=== PATIENT | female | born 1975 | race Caucasian/White ===

== ENCOUNTER 2021-11-27 09:14 | Outpatient (CLI) | payer SELFPAY ==
[2021-11-27 12:57] LABS: Albumin* 4.6 g/dL (3.3-5.0); Chloride* 103 mmol/L (96-114); Potassium* 4.3 mmol/L (3.6-5.1); Sodium* 136 mmol/L (135-149)
[2021-11-27 12:59] LABS: Carbon Dioxide* 21 mmol/L (20-32); Cholesterol* 206 mg/dL (90-199); Creatinine* 0.7 mg/dL (0.5-1.5); Estimated Glomerular Filt Rate 109 ml/min
[2021-11-27 13:00] LABS: Alanine Aminotransferase* 28 U/L (4-35); Alkaline Phosphatase* 59 U/L (40-150); Aspartate Amino Transferase* 18 U/L (12-35); Bilirubin Total* 0.4 mg/dL (0.1-1.5); Blood Urea Nitrogen* 16 mg/dL (5-24); Calcium* 9.3 mg/dL (8.4-10.6); Glucose* 184 mg/dL (60-115); Total Protein* 6.8 g/dL (6.0-8.3); Triglycerides* 264 mg/dL (40-149)
[2021-11-27 13:01] LABS: HDL Cholesterol* 35 mg/dL (>=50); LDL Cholesterol Calculated 118 mg/dL (<100)
== END 2021-11-27 09:15 | disposition home or self-care (01) ==
PROVIDERS: PCP Physician Assistant Medical; Visit Provider Physician Assistant Medical
DX: E11.9 Type 2 diabetes mellitus without complications (principal); E78.2 Mixed hyperlipidemia
CPT/HCPCS: 80053; 80061; 84443

== ENCOUNTER 2022-09-21 08:06 | Observation (INO) | payer MEDICAID, SELFPAY ==
[2022-09-21] VITALS (9 sets, daily range): BP systolic 109–141; BP diastolic 66–86; PULSE 69–81; RESP 16–18; TEMP 36.3–37.2; O2SAT 93–98; BMI 32.7
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
--- NOTE | 2022-09-21 09:04 | CRLHL7_ITS ---
For Patients: As a result of the Cures Act, medical imaging exams and procedure reports are released immediately into your electronic medical record. You may view this report before your referring provider. If you have questions, please contact your health care provider. Indication: Postop redness and swelling. Surgery 2 weeks prior Technique: Two views of the left tibia and fibula were acquired Comparison: None Findings: There is an intramedullary dwayne in the tibia which is intact and appears to be normally aligned. It traverses a distal tibia fracture which is in anatomic alignment. There is also an adjacent not displaced fibular fracture. The screws in the proximal and distal intramedullary dwayne are intact. There is soft tissue swelling. No destructive process of bone Impression: Soft tissue swelling. Postoperative changes related to open reduction internal fixation of a distal left tibia and fibular fracture. No unanticipated findings by plain film. Dictated by Segundo Conway MD @ 09/21/2022 9:43:43 AM (Electronically Signed)
--- NOTE | 2022-09-21 09:04 | CRLHL7_ITS ---
For Patients: As a result of the Cures Act, medical imaging exams and procedure reports are released immediately into your electronic medical record. You may view this report before your referring provider. If you have questions, please contact your health care provider. Indication: Left lower extremity swelling. Recent surgery. Technique: Grayscale, grayscale compression, color and spectral Doppler interrogation the left lower extremity deep venous system was performed as per protocol. The right common femoral vein was also studied Comparison: None Findings: The right common femoral vein is patent. There is no evidence of deep venous thrombosis in the left lower extremity. There are technical limitations in a few areas due to swelling. Impression: No evidence of left lower extremity deep venous thrombosis. Dictated by Segundo Conway MD @ 09/21/2022 10:49:40 AM (Electronically Signed)
[2022-09-21 09:21] LABS: Basophils Percent Auto 0.4 % (0.0-3.0); Hematocrit 40.4 % (33.0-51.0); Hemoglobin* 13.5 gm/dL (12.0-16.0); Immature Granulocytes Pct Auto 0.7 %; Lymphocytes Percent Auto 13.5 % (20-44); Mean Corpuscular HGB Conc 33 gm/dL (32-36); Mean Corpuscular Hemoglobin 29 pg (26-34); Mean Corpuscular Volume 87 fL (80-100); Monocytes Percent Auto 7.9 % (0.0-11.0); Neutrophils Percent Auto 74.5 % (42.0-72.0); Platelet Count* 392 K/uL (140-440); RDW Coefficient of Variation % 12.5 % (11.5-15.5); Red Blood Count 4.62 m/uL (4.00-5.20); White Blood Count* 13.65 K/uL (4.50-11.00)
[2022-09-21 09:25] LABS: Slide Review Reflex No
[2022-09-21 09:46] LABS: Chloride* 103 mmol/L (96-114); Potassium* 4.2 mmol/L (3.6-5.1); Sodium* 134 mmol/L (135-149)
[2022-09-21 09:48] LABS: Creatinine* 0.6 mg/dL (0.5-1.5); Estimated Glomerular Filt Rate 113 ml/min
[2022-09-21 09:49] LABS: Blood Urea Nitrogen* 17 mg/dL (5-24); Carbon Dioxide* 23 mmol/L (20-32); Glucose* 189 mg/dL (60-115)
[2022-09-21 09:52] LABS: C Reactive Protein* 0.9 mg/dL (0.5-1.0)
[2022-09-21] MEDS: OXYCODONE 5 MG TABLET PO (10:31)
[2022-09-21] MEDS: PIPERACILLIN/TAZOBACTAM 3.375 GM in 0.9 % SODIUM CHLORIDE Mini-bag 100 ML IVPB ×3 (11:42→23:44)
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
[2022-09-21] MEDS: GABAPENTIN 300 MG CAPSULE 600 MG PO ×2 (13:50→21:29)
[2022-09-21] MEDS: ACETAMINOPHEN 500 MG TABLET 1000 MG PO ×2 (13:50→21:28)
--- NOTE | 2022-09-21 14:18 | PC.NURSE ---
Pt arrived to floor from ER at 1235. Pt is a SBA; she pivots to and from w/c. Pt has selwyn in two places on left leg and sutures two places on left lower leg. Pt has a plastic splint of left wrist and wrapped with ambrocio wrap. Pt unwraps and removes splint herself and replaces items as well. Pt is alert and oriented. Pt cooperative.
[2022-09-21] MEDS: SODIUM CHLORIDE 0.9 % (FLUSH) 10 ML SYRINGE 5 ML IVF (18:05)
[2022-09-21] MEDS: METFORMIN 500 MG TABLET PO (18:06)
[2022-09-21] MEDS: SENNOSIDES/DOCUSATE TABLET 2 TAB PO (21:28)
--- NOTE | 2022-09-21 22:17 | PC.NURSE ---
End of shift/ pt has been very pleasant. left leg pain 4-5/10, she is getting po pain meds. Pt is up with SBA; platform walker. she is able to walk to the BR. she had a shower. Pt has selwyn in two places on left leg and sutures two places on left lower leg. Pt has a plastic splint of left wrist and wrapped with ambrocio wrap. ambrocio was changed and splint was cleaned. Pt is able to unwraps and removes splint herself. SL is patent. she has a walker with a platform and a boot for her left leg. she is not able to get her heel flat in the boot.
[2022-09-21] MEDS: MELATONIN 3 MG TABLET PO (23:43)
[2022-09-21] MEDS: IBUPROFEN 200 MG TABLET PO (23:44)
[2022-09-22 03:01] VITALS: BP 133/85; PULSE 66; RESP 18; TEMP 36.7; O2SAT 95
[2022-09-22] MEDS: ACETAMINOPHEN 500 MG TABLET 1000 MG PO (05:44)
[2022-09-22] MEDS: PIPERACILLIN/TAZOBACTAM 3.375 GM in 0.9 % SODIUM CHLORIDE Mini-bag 100 ML IVPB (05:45)
--- NOTE | 2022-09-22 06:42 | PC.NURSE ---
End of shift: Pt A&O. VSS and on RA w/ sats > 90%. Afebrile. PRN ibuprofen given for pain management, pt stated adequate relief. Leg incisions are stapled w/out any drainage. JYOTI bandage and splint in place on left arm.?Ice pack to back of leg. SBA with walker. Tolerating regular diet.
[2022-09-22 07:00] VITALS: BP 110/84; PULSE 68; RESP 18; TEMP 36.5; O2SAT 97
[2022-09-22 08:12] LABS: Hemoglobin A1C* 7.23 % (0-5.6)
[2022-09-22] MEDS: SENNOSIDES/DOCUSATE TABLET 2 TAB PO (08:38)
[2022-09-22] MEDS: GABAPENTIN 300 MG CAPSULE 600 MG PO (08:39)
[2022-09-22] MEDS: METFORMIN 500 MG TABLET PO (08:39)
[2022-09-22] MEDS: buPROPion XL 150 MG TABLET PO (08:39)
[2022-09-22] MEDS: SERTRALINE 100 MG TABLET 200 MG PO (08:39)
[2022-09-22 10:15] LABS: Basophils Absolute Auto 0.06 K/uL (0.00-0.30); Basophils Percent Auto 0.6 % (0.0-3.0); Eosinophils Absolute Auto 0.47 K/uL (0.00-0.50); Eosinophils Percent Auto 4.5 % (0.0-7.0); Hematocrit 38.8 % (33.0-51.0); Hemoglobin* 12.9 gm/dL (12.0-16.0); Immature Granulocytes Abs Auto 0.06 K/uL (0.00-0.30); Immature Granulocytes Pct Auto 0.6 %; Lymphocytes Percent Auto 16.6 % (20-44); Mean Corpuscular HGB Conc 33 gm/dL (32-36); Mean Corpuscular Hemoglobin 29 pg (26-34); Mean Corpuscular Volume 88 fL (80-100); Monocytes Percent Auto 8.2 % (0.0-11.0); Neutrophils Absolute Auto 7.23 K/uL (1.7-7.0); Neutrophils Percent Auto 69.5 % (42.0-72.0); Platelet Count* 398 K/uL (140-440); RDW Coefficient of Variation % 12.5 % (11.5-15.5); White Blood Count* 10.39 K/uL (4.50-11.00)
[2022-09-22 10:23] LABS: C Reactive Protein* 0.6 mg/dL (0.5-1.0)
[2022-09-22 10:24] LABS: Slide Review Reflex No
[2022-09-22 11:36] LABS: SARS PCR* Negative SARS-CoV-2 (Negative)
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
[2022-09-22 12:48] VITALS: RESP 18; TEMP 36.5
--- NOTE | 2022-09-22 13:01 | P.ORCN_ITS ---
History of Present Illness HPI Time Seen by Provider: 09:30 Date Seen: 09/22/22 Consult date: 09/22/22 Requesting physician: Everton Smith Chief complaint: 9 days post - left tibial fracture ORIF (IM nail) Narrative: Rosa is 9 days post - left tibial fracture ORIF (IM nail) and closed treatment of mid-shaft fibular fracture. DOS: 09/13/22 (at [facility]). DOI: 09/11/22. Consult regarding possible surgical wound infection. Rosa is resting comfortably in her bed with her left lower extremity slightly elevated on a pillow. Rosa complains of mild-moderate diffuse left lower extremity pain that has improved in comparison to yesterday. Rosa has been full WB or TTWB as tolerated in a walking boot. Denies purulent drainage, erythematous streaking, tenderness. No fever, chills. Patient is quite anxious and eager to leave the hospital. Patient's mother was also recently diagnosed with metastatic cancer, adding to her eagerness to be discharged. Patient is smoker and diabetic (most recent A1C 7.23). Rosa also explains she has a history of previous postoperative complications (infections, etc). [facility] Medical History Closed fracture of posterior malleolus of left tibia ?S82.392A - Other fracture of lower end of left tibia, initial encounter for closed fracture (ICD-10) Anxiety disorder ?F41.9 - Anxiety disorder, unspecified (ICD-10) Closed fracture of metacarpal of left hand ?S62.309A - Unspecified fracture of unspecified metacarpal bone, initial encounter for closed fracture (ICD-10) Tobacco use ?Z72.0 - Tobacco use (ICD-10) Smoker ?F17.200 - Nicotine dependence, unspecified, uncomplicated (ICD-10) Von Willebrand factor (vWF) inhibitor disorder ?D68.318 - Other hemorrhagic disorder due to intrinsic circulating anticoagulants, antibodies, or inhibitors (ICD-10) Type 2 diabetes mellitus ?E11.9 - Type 2 diabetes mellitus without complications (ICD-10) Mixed hypercholesterolemia and hypertriglyceridemia ?E78.2 - Mixed hyperlipidemia (ICD-10) Migraine headache ?G43.909 - Migraine, unspecified, not intractable, without status migrainosus (ICD-10) Attention deficit hyperactivity disorder (ADHD) ?F90.9 - Attention-deficit hyperactivity disorder, unspecified type (ICD-10) Anxiety and depression ?F41.9 - Anxiety disorder, unspecified (ICD-10) ?F32.A - Depression, unspecified (ICD-10) Hospital-acquired pneumonia ?J18.9 - Pneumonia, unspecified organism (ICD-10) ?Y95 - Nosocomial condition (ICD-10) History of varicella ?Z86.19 - Personal history of other infectious and parasitic diseases (ICD- 10) History of blood transfusion ?Z92.89 - Personal history of other medical treatment (ICD-10) History of anemia (2017) ?Z86.2 - Personal history of diseases of the blood and blood-forming organs and certain disorders involving the immune mechanism (ICD-10) Surgical History History of surgery ?Z98.890 - Other specified postprocedural states (ICD-10) History of total abdominal hysterectomy and bilateral salpingo-oophorectomy ?Z90.710 - Acquired absence of both cervix and uterus (ICD-10) ?Z90.722 - Acquired absence of ovaries, bilateral (ICD-10) ?Z90.79 - Acquired absence of other genital organ(s) (ICD-10) History of third molar tooth extraction ?K08.409 - Partial loss of teeth, unspecified cause, unspecified class (ICD- 10) History of laparoscopy ?Z98.890 - Other specified postprocedural states (ICD-10) Family History Other Von Willebrand disease Social History Narrative: Cigarette smoker- one ppd of [place]. Denies use of street or recreational drugs. Lives with boyfriend and daughter. Feels safe. Her mother lives nearby and is supportive. Mother is her POA, should that be required, cell phone [phone]. Mother was diagnosed with lung cancer stage IV on 09/20/22. What is your current living situation?: I presently have a place to live Problems where you live: no known problems Problems where you live details: NA In the past 12 months, utilities in danger of being shut off: no In the past 12 mos, have been you worried that your food would run out before you had money to buy more?: never true In the past 12 mos, the food you bought just didn't last and you didn't have money to buy more?: never true Highest level of school completed/degree received: high school graduate Smoking Status: Current every day smoker Do you use any of these nicotine containing products: None Second hand tobacco smoke exposure: Yes How often do you have a drink containing alcohol: 2-3 times a week Alcohol type: hard liquor How many standard drinks containing alcohol do you have on a typical day: 1 or 2 How often do you have six or more drinks on one occasion: Never AUDIT-C Alcohol total score: 3 Non-prescribed substance use: denies use Caffeine: Yes How often does anyone, including family, friends and others, physically hurt you : never How often does anyone, including family, friends and others, insult or talk down to you: never How often does anyone, including family, friends and others, threaten you with harm: never How often does anyone, including family, friends and others, scream or curse at you: never Little interest or pleasure in doing things: several days Feeling down, depressed, or hopeless: not at all service: No Meds Home Medications and Allergies Home Medications Medication Instructions Recorded Confirmed Type acetaminophen 500 mg capsule 1,000 mg PO Q8H PRN 09/21/22 09/22/22 History aspirin 81 mg tablet,delayed 81 mg PO BID 09/21/22 09/22/22 History release (Petrona Low Dose Aspirin) dextroamphetamine-amphetamine 20 20 mg PO BID PRN 09/21/22 09/22/22 History mg tablet (Adderall) gabapentin 600 mg tablet 600 mg PO Q8H 09/21/22 09/22/22 History metformin 500 mg tablet 500 mg PO BIDWMEAL 09/21/22 09/22/22 History methocarbamol 750 mg tablet 750 mg PO Q8H PRN 09/21/22 09/22/22 History oxycodone 15 mg tablet 15 mg PO Q4H PRN 09/21/22 09/22/22 History sennosides 8.6 mg-docusate sodium 2 tab-cap PO BID 09/21/22 09/22/22 History 50 mg capsule (Senna Plus) Allergies Allergy/AdvReac Type Severity Reaction Status Date / Time No Known Allergies Allergy Unknown Verified 07/13/22 14:41 Ortho Exam Narrative Exam Narrative: EXAMINATION: Patient is alert and oriented x3. No acute distress and converses without labored breathing. No dressings currently covering her surgical wounds. Left lower extremity exam: Suprapatellar selwyn and medial knee selwyn are intact without drainage, erythema nor tenderness. Warmth appropriate. Distal medial ankle wounds closed with 2 Nylon sutures. Mildly erythematous periwound with mild tenderness. No drainage. Warmth appropriate. All surgical wounds appear healthy, clean and dry. No erythematous streaking. Moderate left foot/ankle swelling. CMS intact distally with 2+ DP and PT pulses bilaterally, pink and warm digits. Const Vital Signs, click to edit/add: Vital Signs - 24 hr 09/21/22 15:30 09/21/22 15:30 09/21/22 17:10 Temperature 98.1 F Pulse Rate [Pulse Oximeter] 70 Respiratory Rate 18 16 16 Blood Pressure [Right Arm] 125/78 Pulse Oximetry 96 96 Oxygen Delivery Method Room Air Room Air 09/21/22 20:00 09/21/22 23:00 09/21/22 23:38 Temperature 97.3 F L Pulse Rate [Pulse Oximeter] 79 69 Respiratory Rate 16 16 16 Blood Pressure [Right Arm] 141/72 H 127/78 Pulse Oximetry 93 94 94 Oxygen Delivery Method Room Air Room Air Room Air 09/22/22 03:01 09/22/22 07:00 09/22/22 07:00 Temperature 98.1 F Pulse Rate [Pulse Oximeter] 66 68 Respiratory Rate 18 18 18 Blood Pressure [Right Arm] 133/85 Pulse Oximetry 95 97 Oxygen Delivery Method Room Air Room Air 09/22/22 07:00 09/22/22 12:48 Temperature 97.7 F 97.7 F Pulse Rate [Pulse Oximeter] 68 Respiratory Rate 18 18 Blood Pressure [Right Arm] 110/84 Pulse Oximetry 97 Oxygen Delivery Method Room Air Documenting provider has reviewed patient's vital signs: yes Results Labs Labs: Laboratory Results - last 48 hr 09/21/22 09/22/22 09/22/22 09:10 07:40 10:00 WBC 13.65 H 10.39 RBC 4.62 4.40 Hgb 13.5 12.9 Hct 40.4 38.8 MCV 87 88 MCH 29 29 MCHC 33 33 RDW Coeff of Dona 12.5 12.5 Plt Count 392 398 Neut % (Auto) 74.5 H 69.5 Lymph % (Auto) 13.5 L 16.6 L [place] % (Auto) 7.9 8.2 Eos % (Auto) 3.0 4.5 Baso % (Auto) 0.4 0.6 Neut # (Auto) 10.20 H 7.23 H Lymph # (Auto) 1.80 1.70 [place] # (Auto) 1.10 H 0.90 Eos # (Auto) 0.40 0.47 Baso # (Auto) 0.10 0.06 Sodium 134 L Potassium 4.2 Chloride 103 Carbon Dioxide 23 BUN 17 Creatinine 0.6 Estimated GFR 113 Glucose 189 H Hemoglobin A1c 7.23 H Calcium 9.0 C-Reactive Protein 0.9 0.6 SARS-CoV-2 (PCR) Negative SARS-CoV-2 Assessment and Plan Assessment and plan (1) Cellulitis: Problem comment: 9 days post - left tibial fracture ORIF (IM nail) and closed treatment of mid- shaft fibular fracture. DOS: 09/13/22 (at [facility]) Status: Acute Assessment and Plan: Surgical I&D is not necessary at this time. Her surgical wounds appear healthy, clean, dry and intact. The mild cellulitis surrounding two distal surgical wo unds over medial left ankle have improved after initiation of IV antibiotics. No fever. WBC has improved 13.65 (on 09/21/22) to 10.39 (this morning). CRP is within normal levels. Rosa appears to be doing well this morning. Rosa will follow-up with Orthopedics (she prefers [facility]) 14 days postoperative for wound check and suture removal. Call Orthopedics with any questions or concerns. Total time spent: Total time spent is greater than 50% in coordination of care (as documented) at patient's floor/unit and/or counseling patient: (2) Closed fracture of posterior malleolus of left tibia: Problem comment: 09/11/22. Open reduction internal fixation 09/14/2022 at [place], [place]. Status: Acute Total time spent: Total time spent is greater than 50% in coordination of care (as documented) at patient's floor/unit and/or counseling patient: (3) Hyperglycemia: Status: Acute Total time spent: Total time spent is greater than 50% in coordination of care (as documented) at patient's floor/unit and/or counseling patient: (4) Anxiety disorder: Status: Acute Total time spent: Total time spent is greater than 50% in coordination of care (as documented) at patient's floor/unit and/or counseling patient: (5) Type 2 diabetes mellitus: Status: Acute Total time spent: Total time spent is greater than 50% in coordination of care (as documented) at patient's floor/unit and/or counseling patient: (6) Attention deficit hyperactivity disorder (ADHD): Status: Acute Total time spent: Total time spent is greater than 50% in coordination of care (as documented) at patient's floor/unit and/or counseling patient: (7) Von Willebrand factor (vWF) inhibitor disorder: Status: Acute Total time spent: Total time spent is greater than 50% in coordination of care (as documented) at patient's floor/unit and/or counseling patient: (8) Smoker: Problem comment: 1 ppd. She declines the use of nicotine products while in the hospital. Status: Acute Total time spent: Total time spent is greater than 50% in coordination of care (as documented) at patient's floor/unit and/or counseling patient:
--- NOTE | 2022-09-22 13:53 | PC.NURSE ---
Discharge: Patient A&O. VSS and on RA, pleasant and cooperative. Anxious at times about situation and tearful about patient's moms recent cancer diagnosis. Patient denies needing anything for pain. Leg incisions are stapled w/out any drainage. JYOTI bandage and splint in place on left arm.?Ice pack to back of leg helps with pain and discomfort per patient. SBA with walker. Tolerating regular diet. Discharged today at 1305 accompanied by mom. IV removed intact. Discharge instructions given and signed. Patient verbalized understanding and did not have further questions.
== END 2022-09-22 13:05 | disposition home or self-care (01) ==
LOC: ED 11:36 → MEDSURG 12:40
PROVIDERS: Family Medicine; Admitting Provider Internal Medicine; Emergency Provider Family Medicine; PCP Physician Assistant Medical; Visit Provider Internal Medicine
DX: L03.116 Cellulitis of left lower limb (principal); D72.829 Elevated white blood cell count, unspecified; D68.00 Von Willebrand disease, unspecified; Z79.82 Long term (current) use of aspirin; S82.892A Other fracture of left lower leg, initial encounter for closed fracture; S62.301A Unspecified fracture of second metacarpal bone, left hand, initial encounter for closed fracture; E11.65 Type 2 diabetes mellitus with hyperglycemia; Z79.84 Long term (current) use of oral hypoglycemic drugs; F41.9 Anxiety disorder, unspecified; F90.0 Attention-deficit hyperactivity disorder, predominantly inattentive type; F32.A Depression, unspecified; R51.9 Headache, unspecified; F17.210 Nicotine dependence, cigarettes, uncomplicated
CPT/HCPCS: 36415; 73590; 80048; 82962; 83036; 85025; 86140; 87040; 87081; 87635; 93971; 96365; 96366; 96367; 96372; 97116; 97161; 99284; 99285; A9270; G0378; J2543; J3370; J7050; J7120

== ENCOUNTER 2022-12-01 11:00 | Outpatient (RCR) | payer MEDICAID, SELFPAY | END 2023-03-31 23:59 | disposition home or self-care (01) | PROVIDERS: PCP Physician Assistant Medical; Visit Provider Physician Assistant Surgical | DX: S82.392A Other fracture of lower end of left tibia, initial encounter for closed fracture (principal); M25.672 Stiffness of left ankle, not elsewhere classified; R53.1 Weakness; M79.662 Pain in left lower leg; R60.0 Localized edema; Z51.89 Encounter for other specified aftercare | CPT/HCPCS: 97110; 97116; 97140; 97161 ==

== ENCOUNTER 2023-04-20 14:57 | Outpatient (CLI) | payer MEDICAID, SELFPAY ==
--- NOTE | 2023-04-20 15:00 | CRLHL7_ITS ---
For Patients: As a result of the Century Cures Act, medical imaging exams and procedure reports are released immediately into your electronic medical record. You may view this report before your referring provider. If you have questions, please contact your health care provider. BILATERAL SCREENING MAMMOGRAM WITH COMPUTER-AIDED DETECTION AND TOMOSYNTHESIS TECHNIQUE: CC and MLO views were obtained. These mammographic images have been obtained using full-field digital technique. These mammographic images were interpreted with the benefit of computer-aided detection. Breast Tomosynthesis was used in this interpretation. COMPARISON FILM: 10/07/17. FINDINGS: There are scattered areas of fibroglandular density. IMPRESSION: There is no radiographic evidence for malignancy. ASSESSMENT: BI-RADS Category 1: Negative RECOMMENDATION: Routine screening mammogram in 1 year. A lay language report of this examination will be provided to the patient. Steffen Moser M.D. Diagnostic Radiologist [email or web address] SP/Dictated by: Steffen Moser MD @ 04/21/2023 11:23:00 AM (Electronically Signed)
== END 2023-04-20 14:58 | disposition home or self-care (01) ==
PROVIDERS: PCP Physician Assistant Medical; Visit Provider Physician Assistant Medical
DX: Z12.31 Encounter for screening mammogram for malignant neoplasm of breast (principal)
CPT/HCPCS: 77063; 77067

== ENCOUNTER 2023-05-26 08:34 | Outpatient (CLI) | payer MEDICAID, SELFPAY | END 2023-05-26 08:35 | disposition home or self-care (01) | LOC: NFLDREF 06-08 09:35 | PROVIDERS: PCP Physician Assistant Medical; Referring Provider Physician Assistant Medical; Visit Provider Physician Assistant Medical | DX: E11.9 Type 2 diabetes mellitus without complications (principal); Z79.899 Other long term (current) drug therapy | CPT/HCPCS: 80053; 80061; 82043; 82570 ==

== ENCOUNTER 2024-01-18 07:20 | Emergency (ER) | payer MEDICAID, SELFPAY ==
[2024-01-18 07:27] VITALS: BP 109/88; PULSE 101; RESP 18; TEMP 36.6; O2SAT 95
--- NOTE | 2024-01-18 08:13 | CRLHL7_ITS ---
For Patients: As a result of the Century Cures Act, medical imaging exams and procedure reports are released immediately into your electronic medical record. You may view this report before your referring provider. If you have questions, please contact your health care provider. Indication: Left arm pain. Technique: Multisequence multiplanar MRI of the cervical spine without the use of intravenous contrast. Comparison: None available. Findings: Normal vertebral alignment, stature, and intrinsic marrow signal intensity. Mild disc desiccation and height loss at C5-C6 and C6-C7. The cervical spinal cord is normal in signal intensity. The paraspinal soft tissues are unremarkable. C2-C3: No significant spinal canal or neural foraminal stenosis. C3-C4: No significant spinal canal or right neural foraminal narrowing. Mild left neural foraminal narrowing associated with uncovertebral and facet joint arthrosis. C4-C5: No significant spinal canal or neural foraminal stenosis. C5-C6: Left paracentral/subarticular disc protrusion severely narrowing the lateral recess and likely impinging the C6 nerve root. Mild uncovertebral and facet arthrosis. Mild spinal canal stenosis. Mild right and moderate-severe left neural foraminal narrowing. C6-C7: Symmetric disc bulge with superimposed right paracentral disc protrusion (series 4, image 6). Mild spinal canal stenosis and narrowing of the right lateral recess. Mild right and moderate left neural foraminal narrowing associated with uncovertebral and facet joint arthrosis. C7-T1: Mild facet joint arthrosis. No significant spinal canal or neural foraminal stenosis. Impression: 1. At C5-C6, left paracentral/subarticular disc protrusion, mild spinal canal stenosis with narrowing of the left lateral recess, and moderate-severe left neural foraminal narrowing. 2. At C6-C7, right paracentral disc protrusion, mild spinal canal stenosis with narrowing of the right lateral recess, and moderate left neural foraminal narrowing. Dictated by Srinivas Veras MD @ 01/18/2024 9:55:33 AM (Electronically Signed)
--- NOTE | 2024-01-18 08:23 | ED_ITS ---
HPI - General Adult General Chief complaint: Extremity Pain/Injury, Upper Stated complaint: LT shoulder pain no known injury Time Seen by Provider: 01/18/24 07:51 History of Present Illness HPI narrative: This 48-year-old female comes in reporting left shoulder pain radiating down into her left arm. She does not report any recent injury event. 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 She is not using her arms up above her head very often but frequently as lifting heavier items. she went to urgent care and had an x-ray which was negative. She has been taking a steroid for about a week and has also been using tizanidine without any relief. She states that she is unable to sleep well at night because of these symptoms. She does have an appointment with orthopedic clinic tomorrow. She has full range of motion of her left arm. Related Data Previous Rx's ?Medication ?Instructions ?Recorded acetaminophen 500 mg capsule 500 - 1,000 mg (1 - 2 x 500 mg) PO 10/07/22 Q4-6H PRN pain #100 caps bupropion HCl 150 mg 24 hr tablet, 150 mg PO DAILY #90 tabs 05/26/23 extended release sertraline 100 mg tablet 200 mg (2 x 100 mg) PO DAILY #180 05/26/23 tabs dextroamphetamine-amphetamine 20 20 mg PO BID #60 tabs 01/02/24 mg tablet (Adderall) dextroamphetamine-amphetamine 20 20 mg PO BID #60 tabs 01/02/24 mg tablet (Adderall) dextroamphetamine-amphetamine 20 20 mg PO BID PRN add #60 tabs 01/02/24 mg tablet (Adderall) metformin 1,000 mg tablet 1,000 mg PO BIDWMEAL #180 tabs 01/02/24 trazodone 50 mg tablet 50 - 150 mg (1 - 3 x 50 mg) PO 01/02/24 QDAY #60 tabs semaglutide 0.25 mg or 0.5 mg (2 0.25 mg (0.368 mL) subcut QWEEK #3 01/03/24 mg/3 mL) subcutaneous pen injector mL (Ozempic) gabapentin 100 mg capsule 100 mg PO TID #30 caps 01/18/24 hydrocodone 5 mg-acetaminophen 325 1 tab PO Q4-6H PRN pain #15 tabs 01/18/24 mg tablet ketorolac 10 mg tablet 10 mg PO TID 5 days #15 tabs 01/18/24 methylprednisolone 4 mg tablets in See Rx Instructions PO .COMPLEX 01/18/24 a dose pack (Medrol (Yobani)) #21 ea Allergies Allergy/AdvReac Type Severity Reaction Status Date / Time No Known Allergies Allergy Unknown Verified 01/02/24 08:22 Review of Systems Status of ROS: Reports: 10 or more systems reviewed and unremarkable except as noted in History and below Narrative: Constitutional: No fevers, no weight gain or loss. Eyes: No discharge. No vision changes. HENT: No congestion, no sore throat, no ear pain. Cardiovascular: No chest pain, no palpitations. Respiratory: No shortness of breath, no wheezes, no cough. Gastrointestinal: No abdominal pain, no vomiting, no diarrhea. Genitourinary: No dysuria, no hematuria. Musculoskeletal: Normal range of motion. Skin: No rashes, no pruritis. Neurological: No dizziness, weakness, speech change. Pain in the left shoulder radiating to the left hand. She does not report any neck pain. Endo/Heme/Allergies: No bruising or bleeding. No polydipsia. Pysch: no suicidality, no anxiety, no insomnia. All other systems reviewed and are negative. [facility] Medical History (Updated 01/18/24 @ 10:15 by Devyn Dawn MD) Left tibial fracture ?S82.202A - Unspecified fracture of shaft of left tibia, initial encounter for closed fracture (ICD-10) Left hand fracture ?S62.92XA - Unspecified fracture of left wrist and hand, initial encounter for closed fracture (ICD-10) Closed fracture of posterior malleolus of left tibia ?S82.392A - Other fracture of lower end of left tibia, initial encounter for closed fracture (ICD-10) Cellulitis ?L03.90 - Cellulitis, unspecified (ICD-10) Closed fracture of metacarpal of left hand ?S62.309A - Unspecified fracture of unspecified metacarpal bone, initial encounter for closed fracture (ICD-10) History of varicella ?Z86.19 - Personal history of other infectious and parasitic diseases (ICD- 10) History of blood transfusion ?Z92.89 - Personal history of other medical treatment (ICD-10) History of anemia (2017) ?Z86.2 - Personal history of diseases of the blood and blood-forming organs and certain disorders involving the immune mechanism (ICD-10) Surgical History History of surgery ?Z98.890 - Other specified postprocedural states (ICD-10) History of total abdominal hysterectomy and bilateral salpingo-oophorectomy ?Z90.710 - Acquired absence of both cervix and uterus (ICD-10) ?Z90.722 - Acquired absence of ovaries, bilateral (ICD-10) ?Z90.79 - Acquired absence of other genital organ(s) (ICD-10) History of third molar tooth extraction ?K08.409 - Partial loss of teeth, unspecified cause, unspecified class (ICD- 10) History of laparoscopy ?Z98.890 - Other specified postprocedural states (ICD-10) Family History Other Von Willebrand disease Social History Narrative: Cigarette smoker- one ppd of [place]. Denies use of street or recreational drugs. Lives with boyfriend and daughter. Feels safe. Her mother lives nearby and is supportive. Mother is her POA, should that be required, cell phone [phone]. Mother was diagnosed with lung cancer stage IV on 09/20/22. What is your current living situation?: I presently have a place to live Problems where you live: no known problems Problems where you live details: NA In the past 12 months, utilities in danger of being shut off: no In past 12 months, lack of transportation kept you from medical appts, meetings, work, or getting things needed for daily living: no In the past 12 mos, have been you worried that your food would run out before you had money to buy more?: never true In the past 12 mos, the food you bought just didn't last and you didn't have money to buy more?: never true Highest level of school completed/degree received: high school graduate Smoking Status: Current every day smoker What tobacco products do you use: cigarettes Smoking packs per day: 0.5 Smoking cigarettes per day: 10.0 Years smoked: 5 Smoking pack-years: 2.50 Smoking quit date/years: >15 years ago Do you use any of these nicotine containing products: None Second hand tobacco smoke exposure: Yes How often do you have a drink containing alcohol: 2-3 times a week Alcohol type: hard liquor How many standard drinks containing alcohol do you have on a typical day: 1 or 2 How often do you have six or more drinks on one occasion: Never AUDIT-C Alcohol total score: 3 Non-prescribed substance use: denies use Caffeine: Yes How often does anyone, including family, friends and others, physically hurt you : never How often does anyone, including family, friends and others, insult or talk down to you: never How often does anyone, including family, friends and others, threaten you with harm: never How often does anyone, including family, friends and others, scream or curse at you: never Little interest or pleasure in doing things: more than half the days Feeling down, depressed, or hopeless: more than half the days service: No Exam Narrative: Exam Narrative: Constitutional: Well-developed, well-nourished, no acute distress. HEENT: Normocephalic, atraumatic. Neck: Normal range of motion. Nontender. Supple. Heart: Regular. No murmurs. Normal rate. Intact distal pulses. Lungs: Clear to auscultation. No chest discomfort. No wheezes, rhonchi, or rales. Abdomen: Normal bowel sounds. Nontender. No rebound tenderness. Genitalia: Deferred. Back: No midline tenderness. Normal range of motion. Extremities: Normal range of motion. No injury. Skin: Intact. No rash. Warm. No erythema or pallor. Neurologic: No altered sensation. No weakness. Alert and oriented. Spurling's test is negative. Psychiatric: No suicidality. No anxiety or depression. No insomnia. Nursing notes and vitals signs are reviewed. Const: Vital Signs, click to edit/add: Vital Signs - 24 hr 01/18/24 07:27 Temperature 97.8 F Pulse Rate [Pulse Oximeter] 101 H Respiratory Rate 18 Blood Pressure [Ri ght Upper Arm] 109/88 Pulse Oximetry 95 Oxygen Delivery Me thod Room Air Course Vital Signs Vital signs: Initial Vital Signs Temperature 97.8 F 01/18/24 07:27 Temperature Source Temporal Artery Scan 01/18/24 07:27 Pulse Rate 101 H 01/18/24 07:27 Pulse Rhythm Regular 01/18/24 07:27 Respiratory Rate 18 01/18/24 07:27 Blood Pressure 109/88 01/18/24 07:27 Blood Pressure Mean 95 01/18/24 07:27 Blood Pressure Position Supine 01/18/24 07:27 Pulse Oximetry 95 01/18/24 07:27 Oxygen Delivery Method Room Air 01/18/24 07:27 Vital Signs Temperature 97.8 F 01/18/24 07:27 Pulse Rate 101 H 01/18/24 07:27 Respiratory Rate 18 01/18/24 07:27 Blood Pressure 109/88 01/18/24 07:27 Pulse Oximetry 95 01/18/24 07:27 Oxygen Delivery Method Room Air 01/18/24 07:27 Temperature 97.8 F 01/18/24 07:27 Pulse Rate 101 H 01/18/24 07:27 Respiratory Rate 18 01/18/24 07:27 Blood Pressure 109/88 01/18/24 07:27 Pulse Oximetry 95 01/18/24 07:27 Oxygen Delivery Method Room Air 01/18/24 07:27 Medical Decision Making MDM Narrative Medical decision making narrative: This patient comes in reporting left shoulder pain with symptoms radiating down into her left hand. Spurling's test is negative but her symptoms are certainly more suspicious for nerve impingement coming from her cervical spine. She has full range of motion of her left arm and does not display any kind of injury event or symptoms suspicious of a problem emanating from her shoulder joint. The patient does have a appointment with orthopedic clinic tomorrow but we were able to obtain MRI imaging of her cervical spine today. This does show evidence of nerve impingement at C5-C6 and C6-C7. The patient just completed a steroid taper of prednisone and took a few tablets of Zanaflex without much relief. She has been using Tylenol and ibuprofen intermittently without much relief. I recommended that the patient follow-up with a spine clinic for ongoing m anagement. I did provide prescriptions for Medrol Dosepak, gabapentin, Toradol, and [place]. She understands that [place] is not a medicine that we would refill out of the emergency department. Additionally Toradol is not a good long-term medicine for her also. Imaging Data MR - Other: Radiologist's impression: 1. At C5-C6, left paracentral/subarticular disc protrusion, mild spinal canal stenosis with narrowing of the left lateral recess, and moderate-severe left neural foraminal narrowing. 2. At C6-C7, right paracentral disc protrusion, mild spinal canal stenosis with narrowing of the right lateral recess, and moderate left neural foraminal narrowing. Discharge Plan Discharge Clinical Impression: Cervical radiculopathy Additional Instructions: Take medication as prescribed. Follow up with Spine Clinic for ongoing management. Call [phone] for appointment. Return if worsening. Prescriptions: New hydrocodone-acetaminophen 5-325 mg tablet 1 tab PO Q4-6H PRN (Reason: pain) Qty: 15 0RF ketorolac 10 mg tablet 10 mg PO TID 5 Days Qty: 15 0RF gabapentin 100 mg capsule 100 mg PO TID Qty: 30 2RF methylprednisolone [Medrol (Yobani)] 4 mg tablets,dose pack See Rx Instructions .ROUTE .COMPLEX Qty: 21 0RF Rx Instructions: orally per package directions No Action sertraline 100 mg tablet 200 mg PO DAILY Qty: 180 3RF bupropion HCl 150 mg tablet extended release 24 hr 150 mg PO DAILY Qty: 90 3RF trazodone 50 mg tablet 50 - 150 mg PO QDAY Qty: 60 0RF metformin 1,000 mg tablet 1,000 mg PO BIDWMEAL Qty: 180 1RF dextroamphetamine-amphetamine [Adderall] 20 mg tablet 20 mg PO BID Qty: 60 0RF dextroamphetamine-amphetamine [Adderall] 20 mg tablet 20 mg PO BID Qty: 60 0RF dextroamphetamine-amphetamine [Adderall] 20 mg tablet 20 mg PO BID PRN (Reason: add) Qty: 60 0RF acetaminophen 500 mg capsule 500 - 1,000 mg PO Q4-6H MDD 4,000 mg per day PRN (Reason: pain) Qty: 100 0RF Ozempic 0.25 mg or 0.5 mg (2 mg/3 mL) pen injector 0.25 mg subcut QWEEK Qty: 3 0RF Rx Instructions: for 4 weeks Follow Up/Referrals: Duncan,Mukti B, PA-C [Primary Care Provider] -
[2024-01-18] MEDS: KETOROLAC 30 MG/ML inj IM (10:21)
== END 2024-01-18 10:30 | disposition home or self-care (01) ==
LOC: ED 08:26
PROVIDERS: Emergency Provider Emergency Medicine Emergency Medical Services; PCP Physician Assistant Medical
DX: M54.12 Radiculopathy, cervical region (principal)
CPT/HCPCS: 72141; 96372; 99284; J1885

== ENCOUNTER 2024-05-02 15:04 | Outpatient (CLI) | payer MEDICAID, SELFPAY | END 2024-05-02 15:05 | disposition home or self-care (01) | LOC: NFLDREF 05-05 01:50 | PROVIDERS: PCP Physician Assistant Medical; Referring Provider Physician Assistant Medical; Visit Provider Physician Assistant Medical | DX: E78.2 Mixed hyperlipidemia (principal); E11.9 Type 2 diabetes mellitus without complications; Z79.85 Long-term (current) use of injectable non-insulin antidiabetic drugs; Z13.29 Encounter for screening for other suspected endocrine disorder | CPT/HCPCS: 80053; 80061; 82043; 82570; 84443 ==

== ENCOUNTER 2024-10-01 09:09 | Outpatient (CLI) | payer MEDICAID, SELFPAY | END 2024-10-01 09:10 | disposition home or self-care (01) | LOC: NFLDREF 10-03 03:50 | PROVIDERS: PCP Physician Assistant Medical; Referring Provider Physician Assistant Medical; Visit Provider Physician Assistant Medical | DX: E11.9 Type 2 diabetes mellitus without complications (principal); R53.82 Chronic fatigue, unspecified; Z79.899 Other long term (current) drug therapy | CPT/HCPCS: 82306; 82607; 82728; 84443 ==

== ENCOUNTER 2025-02-03 19:44 | Emergency (ER) | payer MEDICAID, SELFPAY ==
[2025-02-03 19:57] VITALS: BP 110/84; PULSE 88; RESP 16; TEMP 36.7; O2SAT 98; BMI 25.0
--- NOTE | 2025-02-03 20:18 | ED_ITS ---
HPI - General Adult General Date Seen: 02/03/25 Chief complaint: Shoulder Injury/Pain Stated complaint: Left Shoulder pain Time Seen by Provider: 02/03/25 20:18 Source: patient and RN notes reviewed Mode of arrival: ambulatory Limitations: no limitations History of Present Illness HPI narrative: Rosa is a 49-year-old female with history of chronic neck and left shoulder/ arm pain, type 2 diabetes, anxiety and von Willebrand's factor with tendency for bleeding who comes to the emergency room for evaluation of shoulder pain. Patient notes that she received her 3rd cervical spine injection 2 weeks ago at [facility]. She notes that the pain has not changed and that she has had continued pain since that time. She did start tramadol 2 days ago but has not had any relief. She arrives with an ice pack on her left shoulder. She notes that she has actually been doubling up on the tramadol and gabapentin today with no relief. Patient notes suffering a fall 3 years ago while in [place]. States that she broke her lower leg as well as dislocated her left shoulder and broke her collarbone. She was hospitalized at [facility] for an extended period she. She assures me that she has had a workup of her shoulder and they are convinced that the pain in her shoulder is actually coming from her neck. She describes discomfort coming down the lateral arm over the deltoid and the dorsal forearm. Nothing has helped her discomfort. In this is the same pain that she has been ill dealing with over the past weeks. Prior to the injection she did have some steroids which gave her some relief. Related Data Previous Rx's ?Medication ?Instructions ?Recorded bupropion HCl 150 mg 24 hr tablet, 150 mg PO DAILY #90 tabs 05/26/23 extended release sertraline 100 mg tablet 200 mg (2 x 100 mg) PO DAILY #180 06/12/24 tabs blood sugar diagnostic (Blood #50 ea 07/16/24 Glucose Test strips) home hemoglobin A1C monitor #1 ea 07/16/24 lancets #200 ea 07/23/24 zolmitriptan 5 mg tablet (Zomig) See Rx Instructions P O .COMPLEX 10/01/24 #30 tabs acetaminophen 500 mg capsule 500 - 1,000 mg (1 - 2 x 5 00 mg) PO 10/11/24 Q4-6H PRN pain #100 caps trazodone 50 mg tablet 50 - 150 mg (1 - 3 x 50 mg) PO 10/11/24 QDAY #90 tabs dextroamphetamine-amphetamine 20 20 mg PO BID #60 tabs 10/27/25 mg tablet (Adderall) dextroamphetamine-amphetamine 20 20 mg PO BID #60 tabs 10/27/25 mg tablet (Adderall) dextroamphetamine-amphetamine 20 20 mg PO BID PRN add #60 tabs 10/27/25 mg tablet (Adderall) Allergies Allergy/AdvReac Type Severity Reaction Status Date / Time No Known Allergies Allergy Unknown Verified 10/05/24 18:37 Review of Systems Status of ROS: Reports: 6 or more systems reviewed and unremarkable except as noted in History and below Const: Reports: fatigue; Denies: fever ENMT: Reports: neck pain Resp: Denies: cough GI: Reports: vomiting Musculo: Reports: neck pain, extremity pain and joint pain Endo: Reports: fatigue PFSH PFSH Medical History Left tibial fracture ?S82.202A - Unspecified fracture of shaft of left tibia, initial encounter for closed fracture (ICD-10) Left hand fracture ?S62.92XA - Unspecified fracture of left wrist and hand, initial encounter for closed fracture (ICD-10) Closed fracture of posterior malleolus of left tibia ?S82.392A - Other fracture of lower end of left tibia, initial encounter for closed fracture (ICD-10) Cellulitis ?L03.90 - Cellulitis, unspecified (ICD-10) Closed fracture of metacarpal of left hand ?S62.309A - Unspecified fracture of unspecified metacarpal bone, initial encounter for closed fracture (ICD-10) History of varicella ?Z86.19 - Personal history of other infectious and parasitic diseases (ICD- 10) History of blood transfusion ?Z92.89 - Personal history of other medical treatment (ICD-10) History of anemia (2017) ?Z86.2 - Personal history of diseases of the blood and blood-forming organs and certain disorders involving the immune mechanism (ICD-10) Surgical History History of surgery ?Z98.890 - Other specified postprocedural states (ICD-10) History of total abdominal hysterectomy and bilateral salpingo-oophorectomy ?Z90.710 - Acquired absence of both cervix and uterus (ICD-10) ?Z90.722 - Acquired absence of ovaries, bilateral (ICD-10) ?Z90.79 - Acquired absence of other genital organ(s) (ICD-10) History of third molar tooth extraction ?K08.409 - Partial loss of teeth, unspecified cause, unspecified class (ICD- 10) History of laparoscopy ?Z98.890 - Other specified postprocedural states (ICD-10) Family History Other Von Willebrand disease Social History Narrative: Cigarette smoker- one ppd of [place]. Denies use of street or recreational drugs. Lives with boyfriend and daughter. Feels safe. Her mother lives nearby and is supportive. Mother is her POA, should that be required, cell phone [phone]. Mother was diagnosed with lung cancer stage IV on 09/20/22. What is your current living situation?: I presently have a place to live Problems where you live: no known problems Problems where you live details: NA In the past 12 months, utilities in danger of being shut off: no In past 12 months, lack of transportation kept you from medical appts, meetings, work, or getting things needed for daily living: no In the past 12 mos, have been you worried that your food would run out before you had money to buy more?: never true In the past 12 mos, the food you bought just didn't last and you didn't have money to buy more?: never true Highest level of school completed/degree received: high school graduate Smoking Status: Current every day smoker What tobacco products do you use: cigarettes Smoking packs per day: 0.5 Smoking cigarettes per day: 10.0 Years smoked: 5 Smoking pack-years: 2.50 Smoking quit date/years: >15 years ago Do you use any of these nicotine containing products: None Second hand tobacco smoke exposure: Yes How often do you have a drink containing alcohol: 2-3 times a week Alcohol type: hard liquor How many standard drinks containing alcohol do you have on a typical day: 1 or 2 How often do you have six or more drinks on one occasion: Never AUDIT-C Alcohol total score: 3 Non-prescribed substance use: denies use Caffeine: Yes How often does anyone, including family, friends and others, physically hurt you : never How often does anyone, including family, friends and others, insult or talk down to you: never How often does anyone, including family, friends and others, threaten you with harm: never How often does anyone, including family, friends and others, scream or curse at you: never service: No Exam Narrative: Exam Narrative: Rosa Is alert and oriented. Accompanied by her mother who is very worried and vigilant at this visit. External ears eyes nose clear. She is mentating normally. She is able to move her shoulder by taking off her jacket. Extension flexion intact. Palpation over the shoulder does show mild tenderness over the biceps insertion. Upper extremity strength and motor is surprisingly intact. DTRs less than 1+ bilaterally. They are symmetrical. Const: Vital Signs, click to edit/add: Vital Signs - 24 hr 02/03/25 19:57 Temperature 98.1 F Pulse Rate [Pulse Oximeter] 88 Respiratory Rate 16 Blood Pressure [Ri ght Upper Arm] 110/84 Pulse Oximetry 98 Oxygen Delivery Me thod Room Air Documenting provider has reviewed patient's vital signs: yes Course Course ED Course: Differential diagnosis includes but is not limited to cervical radiculopathy, rotator cuff tendinitis, arthritic left shoulder. Patient notes a fall and [place] 3 years ago. One would have to wonder about a rotator cuff injury attack time. It would explain the fact that the cervical injections have not really helped. Patient however notes that they have looked at her shoulder in the past. This may be something to revisit. Patient's mom request MRI but we are unable to do that on a Tuesday night and is unable to do a study such as that out of the ER for chronic pain. I would suggest pain medications and anti-inflammatories. Patient is receptive to this plan. Vital Signs Vital signs: Initial Vital Signs Temperature 98.1 F 02/03/25 19:57 Temperature Source Temporal Artery Scan 02/03/25 19:57 Pulse Rate 88 02/03/25 19:57 Respiratory Rate 16 02/03/25 19:57 Blood Pressure 110/84 02/03/25 19:57 Blood Pressure Mean 92 02/03/25 19:57 Blood Pressure Position Supine 02/03/25 19:57 Pulse Oximetry 98 02/03/25 19:57 Oxygen Delivery Method Room Air 02/03/25 19:57 Vital Signs Temperature 98.1 F 02/03/25 19:57 Pulse Rate 88 02/03/25 19:57 Respiratory Rate 16 02/03/25 19:57 Blood Pressure 110/84 02/03/25 19:57 Pulse Oximetry 98 02/03/25 19:57 Oxygen Delivery Method Room Air 02/03/25 19:57 Temperature 98.1 F 02/03/25 19:57 Pulse Rate 88 02/03/25 19:57 Respiratory Rate 16 02/03/25 19:57 Blood Pressure 110/84 02/03/25 19:57 Pulse Oximetry 98 02/03/25 19:57 Oxygen Delivery Method Room Air 02/03/25 19:57 Medications Administered Medications: Generic Name Dose Route Start Last Admin Trade Name Magdalena PRN Reason Stop Dose Admin Morphine Sulfate 8 mg 02/03/25 20:32 02/03/25 20:43 Morphine 10 Mg/Ml Inj IM 02/03/25 20:33 8 mg ONCE ONE Administration Medical Decision Making MDM Narrative Medical decision making narrative: 1. Left shoulder pain-chronic discomfort. Patient noted to have a known cervical radiculopathy, disc protrusions and has received a total of 3 cervical spine injections the most recent being 2 weeks ago. Really has done nothing for her shoulder pain and thus need to consider other etiologies such as rotator cuff tendinitis, arthritic change. Examination is reassuring and patient has been able to move her arm without significant deficits. Would have her discont inue her tramadol at that time. Will give her a small amount of [place] 5/325 1-2 tabs p.o. Q 4-6 hours p.r.n. pain 10. With no refills. Further pain medications will need to go through patient's primary clinic or Orthopedics. Will also give her an injection here in the ER of morphine 8 mg IM. Would also recommend prednisone 20 mg p.o. b.i.d. x5 days and her 1st dose being 40 mg as anti-inflammatory. If on this medication would recommend omeprazole or Pepcid or other stomach protection. In addition recommend a stool softener as these medicines will likely cause constipation. With mother present I did instruct the patient not to take double doses of her medications as this does not help but does increase the risk of side effects. 2. Cervical radiculopathy-no significant deficits noted on exam tonight. Recommend follow-up with [facility] tomorrow. 3. Disposition-home with her mom kalani. Seek medical attention for worsening symptoms. Medical Records Medical records reviewed: Yes I reviewed the patient's medical records Medical records narrative: Previously seen here and 2022 by myself and in 2023 by a colleague. Discharge Plan Discharge Clinical Impression: Chronic left shoulder pain, Cervical radiculopathy Patient Disposition: Home, Self-Care Condition: Improved Additional Instructions: start steroids tonight as an anti-inflammatory. 20 mg twice a day for 5 days although I would like you to take 40 mg or 2 tablets tonight. Please consider omeprazole or Pepcid for stomach protection while on this medication. Stop tramadol. You may use [place] is a combination medication of a narcotic called hydrocodone and Tylenol. Do not take any excess Tylenol with this medicine. This will cause sleepiness so please do not take any sleep medications, use alcohol or drive with it. Further refills if necessary will need to go to your primary clinic or [facility]. Return to the emergency room for worsening symptoms. Please attempt to follow- up tomorrow with your clinical pharmacy specialist. Prescriptions: No Action bupropion HCl 150 mg tablet extended release 24 hr 150 mg PO DAILY Qty: 90 3RF zolmitriptan [Zomig] 5 mg tablet See Rx Instructions PO .COMPLEX Qty: 30 0RF Rx Instructions: take 1 tab at onset of headache; if no relief, may repeat 1 tab after at least 2 hrs; max = 2 tabs/24 hrs PO sertraline 100 mg tablet 200 mg PO DAILY Qty: 180 3RF (DME) home hemoglobin A1C monitor Device See Rx Instructions .Route Qty: 1 0RF Rx Instructions: As directed Whatever insurance covers (DME) Blood Glucose Test Strip See Rx Instructions .Route Qty: 50 3RF Rx Instructions: As directed Whatever pt needs for monitor device (DME) lancets Misc See Rx Instructions .Route Qty: 200 2RF Rx Instructions: As directed- whatever pt needs and insurance covers trazodone 50 mg tablet 50 - 150 mg PO QDAY Qty: 90 3RF acetaminophen 500 mg capsule 500 - 1,000 mg PO Q4-6H MDD 4,000 mg per day PRN (Reason: pain) Qty: 100 0RF dextroamphetamine-amphetamine [Adderall] 20 mg tablet 20 mg PO BID Qty: 60 0RF dextroamphetamine-amphetamine [Adderall] 20 mg tablet 20 mg PO BID Qty: 60 0RF dextroamphetamine-amphetamine [Adderall] 20 mg tablet 20 mg PO BID PRN (Reason: add) Qty: 60 0RF Follow Up/Referrals: Bhupendra Duncan PA-C [Primary Care Provider, Family Practice] Stand Alone Forms: [facility] Info Instructions
== END 2025-02-03 21:02 | disposition home or self-care (01) ==
LOC: ED 20:56
PROVIDERS: Emergency Provider Family Medicine; PCP Physician Assistant Medical
DX: M54.12 Radiculopathy, cervical region (principal); M25.512 Pain in left shoulder; G89.29 Other chronic pain; F17.210 Nicotine dependence, cigarettes, uncomplicated
CPT/HCPCS: 96372; 99284; J2270